=== PATIENT | male | born 1985 | race Caucasian/White ===

== ENCOUNTER 2018-06-07 05:52 | Day surgery (SDC) | payer OTHER ==
[2018-06-05 15:58] LABS: ALBUMIN 3.9 g/dL (3.4-5.0); ANION GAP 10.9 (8-16); CARBON DIOXIDE 25.2 mmol/L (21-32); CREATININE 1.1 mg/dL (0.7-1.3); POTASSIUM 3.1 mmol/L (3.5-5.1); TOTAL BILIRUBIN 0.3 mg/dL (0.0-1.0)
[2018-06-05 20:01] LABS: HEMOGLOBIN 12.1 g/dL (12.0-18.0); MEAN CORPUSCULAR HEMOGLOBIN 35 pg (27-31); MEAN CORPUSCULAR HGB CONC 34 g/dL (33-37); PLATELET COUNT (AUTO) 203 K/uL (140-450); RED BLOOD CELL COUNT(AUTO) 3.37 MIL/uL (4.20-6.10); WHITE BLOOD COUNT (AUTO) 4.4 K/uL (4.8-10.8)
[2018-06-05 20:02] LABS: BASOPHILS % (AUTO) 0.1 % (0.0-2.0); LYMPHOCYTES % (AUTO) 18.5 % (20.5-51.1); MONOCYTES % (AUTO) 5.6 % (1.7-9.3); NEUTROPHILS % (AUTO) 75.8 % (42.2-75.2)
[~2018-06-07] VITALS: Ht 182.9 cm; Wt 103.4 kg
[2018-06-07] MEDS ORDERED: fentaNYL 0.05 MG/ML VIAL ONE (07:24)
[2018-06-07] MEDS ORDERED: OMEP20TC12 PO (07:29)
[2018-06-07] MEDS ORDERED: TRAZ100T77 PO (07:29)
[2018-06-07] MEDS ORDERED: diphenhydrAMINE 50 MG/ML VIAL IVP PRN (07:40)
[2018-06-07] MEDS ORDERED: LACTATED RINGERS 1,000 ML IV SCH (07:40)
[2018-06-07] MEDS ORDERED: HYDROmorphone 1 MG/ML AMP IVP PRN (07:40)
[2018-06-07] MEDS ORDERED: ONDANSETRON 4 MG/2 ML VIAL IVP PRN (07:40)
[2018-06-07] MEDS ORDERED: MEPERIDINE 25 MG/ML SYR IVP PRN (07:40)
[2018-06-07] MEDS ORDERED: HYDROCORTISONE NA SUCC 100 MG/2 ML VIAL ONE (07:45)
[2018-06-07] MEDS ORDERED: LIDOCAINE 2% 100 MG/5 ML UJET TP ONE (08:01)
== END 2018-06-07 09:30 | disposition home or self-care (01) ==
LOC: MDS 05:52 → MMU 06:00 → MDS 09:30
PROVIDERS: ATTEND Internal Medicine Gastroenterology
DX: K62.5 Hemorrhage of anus and rectum (principal); R19.7 Diarrhea, unspecified; K62.89 Other specified diseases of anus and rectum; Z79.899 Other long term (current) drug therapy; Z87.891 Personal history of nicotine dependence; J45.909 Unspecified asthma, uncomplicated; K21.9 Gastro-esophageal reflux disease without esophagitis; E66.9 Obesity, unspecified; Z68.30 Body mass index [BMI] 30.0-30.9, adult; F41.9 Anxiety disorder, unspecified; G50.0 Trigeminal neuralgia; K51.90 Ulcerative colitis, unspecified, without complications; Z98.890 Other specified postprocedural states
CPT/HCPCS: 36415; 45378; 71045; 80053; 85025; J1720; J3010; J7030; J7120